=== PATIENT | male | born 1975 | race African-American/Black ===

== ENCOUNTER → 2018-12-30 | Outpatient (CLI) | payer BC ==
[~2018-12-30] MED LIST: CLINDAMYCIN HC300 MG PO; COLACE100 MG PO; FLEXERIL10 MG PO; HYDROCODONE BIT1 T11 PO; MOTRIN800 MG PO; NAPROSYN500 MG PO; VICODIN 5/500 505 MG PO
== END | disposition home or self-care (01) ==
LOC: RAD 17:18
DX: M25.561 Pain in right knee (principal)

== ENCOUNTER → 2020-06-08 | Outpatient (CLI) | payer BC | END | disposition home or self-care (01) | LOC: COVID19 09:46 | PROVIDERS: ATTEND Internal Medicine | DX: Z20.828 Contact with and (suspected) exposure to other viral communicable diseases (principal) ==

== ENCOUNTER → 2025-01-12 | Day surgery (SDC) | payer BC ==
[~2025-01-12] VITALS: Ht 185.4 cm; Wt 112.5 kg
[~2025-01-12] MED LIST changes: +HYDROCHLOROTHIA25 M1 PO; +Lactated Ringer's Solution 1,000 ML IV ONE; +Lidocaine Hydrochloride 2% 5 ML SDV IM ONE; +Midazolam Hydrochloride 2 MG/2 ML VIAL IV ONE; +PROPOFOL 200 MG/20 ML VIAL IV ONE; +fentaNYL CITRATE 100 MCG/2 ML VIAL IV ONE
[2025-01-12 07:30] VITALS: BP 158/90
[2025-01-12 08:44] VITALS: BP 126/61
[2025-01-12 08:59] VITALS: BP 110/74
[2025-01-12 09:10] VITALS: BP 123/78
== END | disposition home or self-care (01) ==
LOC: SDC 01-09 11:00
PROVIDERS: ATTEND Surgery
DX: Z12.11 Encounter for screening for malignant neoplasm of colon (principal); D12.2 Benign neoplasm of ascending colon; I10 Essential (primary) hypertension; F10.90 Alcohol use, unspecified, uncomplicated; F17.210 Nicotine dependence, cigarettes, uncomplicated; Z79.899 Other long term (current) drug therapy; Z98.890 Other specified postprocedural states; Z82.49 Family history of ischemic heart disease and other diseases of the circulatory system